=== PATIENT | male | born 1955 | race African-American/Black ===

== ENCOUNTER 2017-11-14 14:09 | Emergency (ER) | payer OTHER ==
[~2017-11-14] VITALS: Ht 177.8 cm; Wt 104.3 kg
--- NOTE | 2017-11-14 14:46 | Emergency Room Report ---
History of Present Illness General Chief Complaint: Pain Source: Patient Present Illness HPI Patient is a 62-year-old male who presented after increased left lower extremity pain. Patient reported having intermittent numbness. This reportedly had been worsened with ambulation but did not change with cycling. Reports have increased pain with going up and down stairs. He denies recent trauma.The patient was having some pain to his buttock as well as to his left thigh. The patient denies being a smoker.He denies increased leg pain or swelling.The patient reports having no recent trauma. He reports having numbness worse with exertion. During resting rested numbness subsequently improves. Allergies: Coded Allergies: No Known Allergies (Unverified , 11/14/17) Patient History Past Medical History: see triage record Reviewed Nursing Documentation: PMH: Agreed; PSxH: Agreed Nursing Documentation-PMH Past Medical History: No History, Except For Hx Hypertension: Yes Hx Diabetes: Yes - PRE-DIABETES Hx Gastrointestinal Problems: Yes - GERD History Of Psychiatric Problem: Yes - ANXIETY Review of Systems All Other Systems: negative except mentioned in HPI Physical Exam Vital Signs Date Time Temp Pulse Resp B/P (MAP) Pulse Ox O2 Delivery O2 Flow Rate FiO2 11/14/17 14:22 97.9 74 21 170/90 97 Room Air 97.9 Sp02 EP Interpretation: reviewed, normal General Appearance: normal inspection, well appearing, no apparent distress, alert, GCS 15, non-toxic Head: atraumatic ENT: normal ENT inspection, hearing grossly normal, normal voice Neck: normal inspection, full range of motion, supple, no bony tend Respiratory: normal inspection, lungs clear, normal breath sounds, no respiratory distress, no retraction, no wheezing Cardiovascular #1: regular rate, rhythm, no edema Gastrointestinal: normal inspection, normal bowel sounds, non tender, soft, no guarding, no hernia Genitourinary: no CVA tenderness Musculoskeletal: normal inspection, back normal, normal range of motion Neurologic: normal inspection, alert, oriented x3, responsive, translational specialist III-XII nml as tested, speech normal Psychiatric: normal inspection, judgement/insight normal, mood/affect normal Skin: normal inspection, normal color, no rash Medical Decision Making Diagnostic Impression: Primary Impression: Neural foraminal stenosis of lumbar spine Additional Impressions: Arthritis of knee Degenerative arthritis of lumbar spine ER Course The patient presented for left lower extremity pain. Differential diagnosis included was not limited to arterial insufficiency, deep venous thrombosis, spinal stenosis, lateral femoral cutaneous nerve among others.Duplex ultrasound of the left lower extremity showed triphasic flow without evidence of vascular occlusion. There is noted be some vascular calcifications. A CT of the lumbar spine read by radiology showed L4-L5 moderate to severe disc narrowing and osteophyte formation there is narrowing of the L4-L5 and L5-S1 neural foramina. Left unilateral left spondylosis. The patient is advised to follow up with primary care doctor in 1-2 days for physical therapy and orthopedic referral .The patient was advised to follow-up with orthopedic doctor for evaluation of knee arthritis. The patient is advised that he may need further imaging and diagnostics. Patient is advised to return if any worsening condition or if any changes in status that are concerning. This report is dictated with [employer] telescope repairer software which may occasionally lead to discrepancies related to use of this software. Labs Test 11/14/17 15:05 11/14/17 15:57 White Blood Count 7.2 K/UL (4.8-10.8) Red Blood Count 4.97 M/UL (4.70-6.10) Hemoglobin 15.0 G/DL (14.2-18.0) Hematocrit 44.6 % (42.0-52.0) Mean Corpuscular Volume 90 FL (80-99) Mean Corpuscular Hemoglobin 30.1 PG (27.0-31.0) Mean Corpuscular Hemoglobin Concent 33.6 G/DL (32.0-36.0) Red Cell Distribution Width 11.4 % (11.6-14.8) Platelet Count 204 K/UL (150-450) Mean Platelet Volume 6.5 FL (6.5-10.1) Neutrophils (%) (Auto) 66.1 % (45.0-75.0) Lymphocytes (%) (Auto) 21.7 % (20.0-45.0) Monocytes (%) (Auto) 5.5 % (1.0-10.0) Eosinophils (%) (Auto) 5.6 % (0.0-3.0) Basophils (%) (Auto) 1.2 % (0.0-2.0) Prothrombin Time 9.9 SEC (9.30-11.50) Prothromb Time International Ratio 0.9 (0.9-1.1) Activated Partial Thromboplast Time 24 SEC (23-33) Sodium Level 139 MMOL/L (136-145) Potassium Level 4.8 MMOL/L (3.5-5.1) Chloride Level 106 MMOL/L (98-107) Carbon Dioxide Level 28 MMOL/L (21-32) Anion Gap 5 mmol/L (5-15) Blood Urea Nitrogen 9 mg/dL (7-18) Creatinine 1.0 MG/DL (0.55-1.30) Estimat Glomerular Filtration Rate > 60 mL/min (>60) Glucose Level 116 MG/DL (74-106) Calcium Level 9.2 MG/DL (8.5-10.1) Total Bilirubin 0.3 MG/DL (0.2-1.0) Aspartate Amino Transf (AST/SGOT) 18 U/L (15-37) Alanine Aminotransferase (ALT/SGPT) 26 U/L (12-78) Alkaline Phosphatase 93 U/L (46-116) Total Creatine Kinase 134 U/L (26-308) Troponin I 0.000 ng/mL (0.000-0.056) Total Protein 7.7 G/DL (6.4-8.2) Albumin 3.9 G/DL (3.4-5.0) Globulin 3.8 g/dL Albumin/Globulin Ratio 1.0 (1.0-2.7) Urine Color Yellow Urine Appearance Clear Urine pH 7 (4.5-8.0) Urine Specific [place] 1.010 (1.005-1.035) Urine Protein Negative (NEGATIVE) Urine Glucose (UA) Negative (NEGATIVE) Urine Ketones Negative (NEGATIVE) Urine Occult Blood Negative (NEGATIVE) Urine Nitrite Negative (NEGATIVE) Urine Bilirubin Negative (NEGATIVE) Urine Urobilinogen Normal MG/DL (0.0-1.0) Urine Leukocyte Esterase 1+ (NEGATIVE) Urine RBC 0-2 /HPF (0 - 0) Urine WBC 2-4 /HPF (0 - 0) Urine Squamous Epithelial Cells None /LPF (NONE/OCC) Urine Amorphous Sediment Few /LPF (NONE) Urine Bacteria Few /HPF (NONE) Urine Yeast Few /HPF (NONE) Last Vital Signs Date Time Temp Pulse Resp B/P (MAP) Pulse Ox O2 Delivery O2 Flow Rate FiO2 11/14/17 14:22 97.9 74 21 170/90 97 Room Air 97.9 Status: improved Disposition: HOME, SELF-CARE Condition: Stable Scripts Ibuprofen* (MOTRIN*) 600 Mg Tablet 600 MG ORAL Q8H PRN for For Pain, #30 TAB 0 Refills Prov: Noe Allison MD 11/14/17 Lidocaine (Lidocaine) 1 Each Adh..patch 700 MG TP DAILY, #30 PATCH Prov: Noe Allison MD 11/14/17 Noe Allison MD November 14, 2017 14:46
[2017-11-14 14:59] VITALS: BP 137/84
[2017-11-14 15:26] LABS: BASOPHILS % (AUTO) 1.2 % (0.0-2.0); EOSINOPHILS % (AUTO) 5.6 % (0.0-3.0); HEMATOCRIT 44.6 % (42.0-52.0); LYMPHOCYTES % (AUTO) 21.7 % (20.0-45.0); MEAN CORPUSCULAR VOLUME 90 FL (80-99); MONOCYTES % (AUTO) 5.5 % (1.0-10.0); NEUTROPHILS % (AUTO) 66.1 % (45.0-75.0); PLATELET COUNT 204 K/UL (150-450); RED BLOOD COUNT 4.97 M/UL (4.70-6.10); RED CELL DISTRIBUTION WIDTH 11.4 % (11.6-14.8); WHITE BLOOD COUNT 7.2 K/UL (4.8-10.8)
[2017-11-14 15:29] LABS: INR 0.9 (0.9-1.1)
[2017-11-14 15:33] LABS: CREATINE KINASE 134 U/L (26-308)
--- NOTE | 2017-11-14 15:48 | Diagnostic Imaging Report ---
Indication: Back pain Technique: Continuous helical transaxial imaging of the lumbar spine was obtained from the lung bases to the pubic symphysis. No IV contrast was administered. Coronal 2-D reformats were also obtained. Study obtained in a Siemens sensation [address] Total Dose length Product (DLP): 624.[address] Dose Index Volume (CTDIvol): 19.72 mGy Comparison: None Findings: No acute fractures appreciated. Moderate degenerative disease demonstrated in the lower part of the lumbar spine. At L4-5 there is moderate to severe disc narrowing and endplate facet osteophyte formation. At L5, there is a left unilateral defect of the pars interarticularis. There is a no anterolisthesis. Narrowing of the L4-5 and L5-S1 neural foramina demonstrated. There is also moderate narrowing of intervertebral disc at L3-4. Aorta is moderately calcified. IMPRESSION: No acute injury appreciated. Moderate degenerative changes of the lower lumbar spine as described above. Left unilateral L5 spondylolysis. 11/13/2017The CT scanner at [facility] is accredited by the [employer] and the scans are performed using dose optimization techniques as appropriate to a performed exam including Automatic Exposure control.
[2017-11-14 15:58] LABS: ANION GAP 5 mmol/L (5-15); BLOOD UREA NITROGEN 9 mg/dL (7-18); CALCIUM 9.2 MG/DL (8.5-10.1); CARBON DIOXIDE 28 MMOL/L (21-32); CHLORIDE 106 MMOL/L (98-107); POTASSIUM 4.8 MMOL/L (3.5-5.1); SODIUM 139 MMOL/L (136-145)
[2017-11-14 16:03] LABS: ALANINE AMINOTRANSFERASE 26 U/L (12-78); ALBUMIN 3.9 G/DL (3.4-5.0); ALKALINE PHOSPHATASE 93 U/L (46-116); ASPARTATE AMINO TRANSFERASE 18 U/L (15-37); BILIRUBIN,TOTAL 0.3 MG/DL (0.2-1.0)
[2017-11-14 16:15] LABS: APPEARANCE,URINE CLEAR; BILIRUBIN, URINE NEGATIVE (NEGATIVE); GLUCOSE, URINE (UA) NEGATIVE (NEGATIVE); KETONES,URINE NEGATIVE (NEGATIVE); LEUKOCYTE ESTERASE ,URINE 1+ (NEGATIVE); NITRITE,URINE NEGATIVE (NEGATIVE); PH,URINE 7 (4.5-8.0); PROTEIN,URINE NEGATIVE (NEGATIVE); UROBILINOGEN,URINE NORMAL MG/DL (0.0-1.0)
[2017-11-14 16:22] LABS: COLOR,URINE YELLOW
[2017-11-14] MEDS ORDERED: Ketorolac 30mg Inj IV ONE (16:30)
[2017-11-14] MEDS ORDERED: IBUPROFEN600 MG ORAL (16:39)
[2017-11-14] MEDS ORDERED: LIDOCAINE700 M1 TP (16:39)
[2017-11-14 17:18] VITALS: BP 137/84
--- NOTE | 2017-11-15 09:31 | Diagnostic Imaging Report ---
APPROVED REPORT CPT Code: 14248 Symptoms Left Comments LT LEG PAIN. LEFT LEG: Common femoral artery waveform analysis is within normal limits at rest. Color flow duplex sonography reveals minimal calcification throughout the superficial femoral arterie. Color duplex sonography reveals patency of the superficial femoral, popliteal and tibial arteries. There is no evidence of stenosis or occlusion within these segments.
--- NOTE | 2017-11-15 10:30 | Diagnostic Imaging Report ---
Indication: Pain 3 views of the left knee were obtained. Findings: There is joint space narrowing with extensive marginal osteophyte formation and subchondral sclerosis. No fracture seen. IMPRESSION: Moderate to severe degenerative arthritis
== END 2017-11-14 17:19 | disposition home or self-care (01) ==
LOC: EMR 14:57
DX: M48.061 Spinal stenosis, lumbar region without neurogenic claudication (principal); M17.12 Unilateral primary osteoarthritis, left knee; M43.06 Spondylolysis, lumbar region
CPT/HCPCS: 36415; 72131; 73562; 80053; 81001; 82550; 84484; 85025; 85610; 85730; 87086; 93926; 96374; 99284; J1885

== ENCOUNTER 2019-04-16 13:34 | Emergency (ER) | payer MEDICARE, OTHER ==
[~2019-04-16] VITALS: Ht 177.8 cm; Wt 99.8 kg
[~2019-04-16 13:34] MED LIST: IBUPROFEN600 MG ORAL; LIDOCAINE700 M1 TP
[2019-04-16] MEDS ORDERED: METFORMIN HCL500 M1 ORAL (13:44)
[2019-04-16] MEDS ORDERED: METOPROLOL TART25 MG ORAL (13:44)
[2019-04-16 13:45] VITALS: BP 109/79
--- NOTE | 2019-04-16 13:47 | NUR ---
ED Nurse Note: pt walked in to ED due to redness and swelling on both legs for 1 weeks. per pt, possible spider bite. redness getting bigger. no discharge noted. AAO x4. respirations even and non-labored noted. will wait for the further order.
[2019-04-16] MEDS ORDERED: Cephalexin 500mg cap ORAL ONE (14:15)
[2019-04-16 15:03] LABS: APPEARANCE,URINE CLEAR; BILIRUBIN, URINE NEGATIVE (NEGATIVE); GLUCOSE, URINE (UA) NEGATIVE (NEGATIVE); KETONES,URINE 1+ (NEGATIVE); LEUKOCYTE ESTERASE ,URINE NEGATIVE (NEGATIVE); NITRITE,URINE NEGATIVE (NEGATIVE); PH,URINE 6 (4.5-8.0); PROTEIN,URINE NEGATIVE (NEGATIVE); UROBILINOGEN,URINE NORMAL MG/DL (0.0-1.0)
[2019-04-16 15:05] LABS: COLOR,URINE YELLOW
[2019-04-16 15:07] LABS: BASOPHILS % (AUTO) 1.4 % (0.0-2.0); EOSINOPHILS % (AUTO) 5.6 % (0.0-3.0); HEMATOCRIT 43.9 % (42.0-52.0); HEMOGLOBIN 15.4 G/DL (14.2-18.0); LYMPHOCYTES % (AUTO) 27.6 % (20.0-45.0); MEAN CORPUSCULAR VOLUME 86 FL (80-99); NEUTROPHILS % (AUTO) 60.4 % (45.0-75.0); PLATELET COUNT 232 K/UL (150-450); RED BLOOD COUNT 5.11 M/UL (4.70-6.10); RED CELL DISTRIBUTION WIDTH 10.3 % (11.6-14.8); WHITE BLOOD COUNT 6.7 K/UL (4.8-10.8)
[2019-04-16 15:21] LABS: ANION GAP 5 mmol/L (5-15); BLOOD UREA NITROGEN 11 mg/dL (7-18); CARBON DIOXIDE 31 MMOL/L (21-32); CHLORIDE 106 MMOL/L (98-107); POTASSIUM 4.3 MMOL/L (3.5-5.1); SODIUM 142 MMOL/L (136-145)
--- NOTE | 2019-04-16 15:21 | Emergency Room Report ---
History of Present Illness General Chief Complaint: Skin Rash/Abscess Source: Medical Record Present Illness HPI 63-year-old male with history of prediabetes and hypertension currently taking metformin here complaining of affected insect bite and right lower extremity for the past 4 days. Patient reports due to extreme pruritus has been scratching it nonstop and pus drainage is now noted in the right Achilles. Patient is worried about the lesion getting gangrene is however no signs of gangrene is noted. Patient has full range of motion of the foot, denies tingling and numbness. Denies fever and chills, chest pain, shortness of breath , palpitation, abdominal pain, nausea vomiting and other associated symptoms. Is up-to-date with tetanus shot. Allergies: Coded Allergies: No Known Allergies (Unverified , 11/14/17) Patient History Past Medical History: see triage record Past Surgical History: unable to obtain Pertinent Family History: none Immunizations: UTD Reviewed Nursing Documentation: PMH: Agreed; PSxH: Agreed Nursing Documentation-PMH Past Medical History: No History, Except For Hx Hypertension: Yes Hx Diabetes: Yes - PRE-DIABETES Hx Gastrointestinal Problems: Yes - GERD Review of Systems All Other Systems: negative except mentioned in HPI Physical Exam Vital Signs Date Time Temp Pulse Resp B/P (MAP) Pulse Ox O2 Delivery O2 Flow Rate FiO2 04/16/19 13:41 97.9 72 18 109/79 (89) 99 Room Air Sp02 EP Interpretation: reviewed, normal General Appearance: no apparent distress, alert, GCS 15, non-toxic Head: normocephalic, atraumatic Eyes: bilateral eye normal inspection, bilateral eye PERRL ENT: hearing grossly normal, normal pharynx, no angioedema, normal voice Neck: full range of motion, supple, supple/symm/no masses Respiratory: chest non-tender, lungs clear, normal breath sounds, no rhonchi, no wheezing, speaking full sentences Cardiovascular #1: regular rate, rhythm, no edema, no murmur Cardiovascular #2: 2+ dorsalis pedis (R), 2+ dorsalis pedis (L) Gastrointestinal: normal bowel sounds, non tender, soft, non-distended, no guarding, no rebound Genitourinary: normal inspection, no CVA tenderness Musculoskeletal: back normal, gait/station normal, normal range of motion, non- tender, no calf tenderness Neurologic: alert, oriented x3, responsive, motor strength/tone normal, sensory intact, speech normal Psychiatric: judgement/insight normal, memory normal, mood/affect normal, no suicidal/homicidal ideation Skin: other - Infected insect bite right Achilles with minimal pus drainage however no signs of osteomyelitis noted it does not appear to be gangreneous Lymphatic: no adenopathy Medical Decision Making PA Attestation All diagnoses and treatment plans were reviewed and discussed with my supervising physician Dr. Amaya Diagnostic Impression: Primary Impression: Infected insect bite ER Course 63-year-old male with history of prediabetes and hypertension currently taking metformin here complaining of affected insect bite and right lower extremity for the past 4 days. Patient reports due to extreme pruritus has been scratching it nonstop and pus drainage is now noted in the right Achilles. Patient is worried about the lesion getting gangrene is however no signs of gangrene is noted. Patient has full range of motion of the foot, denies tingling and numbness. Denies fever and chills, chest pain, shortness of breath , palpitation, abdominal pain, nausea vomiting and other associated symptoms. Is up-to-date with tetanus shot. Ddx considered but are not limited to : Infected insect bite, noninfected insect bite, gangrenous insect bite cellulitis, DVT, superficial infection, abscess Vital signs: are WNL, pt. is afebrile H&PE are most consistent with: Infected insect bite ORDERS: Bactrim DS, Keflex, , CBC, CMP, UA ED INTERVENTIONS: Bactrim DS, Keflex, hydrocortisone cream DISCHARGE: At this time pt. is stable for d/c to home. Will provide printed patient care instructions, and any necessary prescriptions. Care plan and follow up instructions have been discussed with the patient prior to discharge. Hydrocortisone cream to be applied to the noninfected side of the insect bite which is in the other leg. Follow-up with primary care or return to emergency room in 24 to 48 hours for wound check. If worsening symptoms return to the emergency room sooner. No x-rays needed as no signs of osteomyelitis noted. Last Vital Signs Date Time Temp Pulse Resp B/P (MAP) Pulse Ox O2 Delivery O2 Flow Rate FiO2 04/16/19 13:45 97.9 72 18 109/79 99 Room Air Disposition: HOME, SELF-CARE Condition: Stable Scripts Hydrocortisone Acetate/Aloe V (Hydrocortisone-Aloe 0.5% Cream) 28.4 Gm Cream..g. 1 GM TP BID, #28 GM Prov: Melodie Parisi 04/16/19 Trimethoprim/Sulfamethoxazole 160/800* (BACTRIM DS TABLET*) 1 Each Tablet 1 TAB ORAL TWICE A DAY for 7 Days, #14 TAB Prov: Melodie Parisi 04/16/19 Cephalexin* (KEFLEX*) 500 Mg Capsule 500 MG ORAL EVERY 6 HOURS for 7 Days, #28 CAP Prov: Melodie Parisi 04/16/19 Referrals: NON PHYSICIAN (PCP) Patient Instructions: Insect Bite, [id number] Additional Instructions: Take medication as directed, follow-up with your primary care provider, if worsening symptoms return to the emergency room. You need all the wound check in 24 to 48 hours Melodie Parisi Apr 16, 2019 15:21
[2019-04-16] MEDS ORDERED: HYDROCORTISON28.4 G4 TP (15:24)
[2019-04-16] MEDS ORDERED: BACTRIM DS TAB1 EAC1 ORAL (15:24)
[2019-04-16] MEDS ORDERED: CEPHALEXIN500 MG ORAL (15:24)
[2019-04-16 15:25] LABS: ALANINE AMINOTRANSFERASE 40 U/L (12-78); ALBUMIN 3.8 G/DL (3.4-5.0); ALBUMIN/GLOBULIN RATIO 1.1 (1.0-2.7); ALKALINE PHOSPHATASE 100 U/L (46-116); ASPARTATE AMINO TRANSFERASE 23 U/L (15-37); BILIRUBIN,TOTAL 0.4 MG/DL (0.2-1.0)
[2019-04-16 15:50] VITALS: BP 111/81
--- NOTE | 2019-04-16 15:52 | NUR ---
ER DISCHARGE NOTE: Patient is cleared to be discharged per ERMD, pt is aox4, on room air, with stable vital signs. pt was given dc and prescription instructions, pt was able to verbalize understanding, pt id band removed without complications. pt is able to ambulate with steady gait. pt took all belongings.
== END 2019-04-16 15:53 | disposition home or self-care (01) ==
LOC: EMR 14:36
DX: S90.861A Insect bite (nonvenomous), right foot, initial encounter (principal); L08.9 Local infection of the skin and subcutaneous tissue, unspecified; I10 Essential (primary) hypertension; R73.03 Prediabetes; K21.9 Gastro-esophageal reflux disease without esophagitis; Z79.84 Long term (current) use of oral hypoglycemic drugs; W57.XXXA Bitten or stung by nonvenomous insect and other nonvenomous arthropods, initial encounter; Y92.9 Unspecified place or not applicable
CPT/HCPCS: 36415; 80053; 81001; 85025; 99283

== ENCOUNTER 2019-08-21 13:27 | Emergency (ER) | payer MEDICARE, OTHER ==
[~2019-08-21] VITALS: Ht 177.8 cm; Wt 98.9 kg
[~2019-08-21 13:27] MED LIST changes: +BACTRIM DS TAB1 EAC1 ORAL; +CEPHALEXIN500 MG ORAL; +HYDROCORTISON28.4 G4 TP; +METFORMIN HCL500 M1 ORAL; +METOPROLOL TART25 MG ORAL
[2019-08-21 13:42] VITALS: BP 158/92
--- NOTE | 2019-08-21 13:55 | Emergency Room Report ---
History of Present Illness General Chief Complaint: Skin Rash/Abscess Source: Patient Present Illness HPI 64-year-old male with history of type 2 diabetes, hypertension both controlled with medication here complaining of an insect bite left lower extremity minimal pain at the site and pruritus. Reports that he was cleaning his closet and he noticed a spider and it bit him in the left left lower extremity. It happened yesterday. Patient is afebrile, denies any pain radiation, no signs of massive cellulitis, abscess formation noted. Really minimal warm to touch at the site of the bite. No drainage noted. Denies chest pain, shortness of breath, palpitation, headache and dizziness. Has not taken medication for symptom relief. Allergies: Coded Allergies: No Known Allergies (Unverified , 11/14/17) Patient History Past Medical History: see triage record Past Surgical History: none Pertinent Family History: none Immunizations: UTD Reviewed Nursing Documentation: PMH: Agreed; PSxH: Agreed Nursing Documentation-PMH Past Medical History: No History, Except For Hx Hypertension: Yes Hx Diabetes: Yes - PRE-DIABETES Hx Gastrointestinal Problems: Yes - GERD Review of Systems All Other Systems: negative except mentioned in HPI Physical Exam Vital Signs Date Time Temp Pulse Resp B/P (MAP) Pulse Ox O2 Delivery O2 Flow Rate FiO2 08/21/19 13:42 98.1 65 17 158/92 (114) 99 Room Air Sp02 EP Interpretation: reviewed, normal General Appearance: no apparent distress, alert, GCS 15, non-toxic Head: normocephalic, atraumatic Eyes: bilateral eye normal inspection, bilateral eye PERRL ENT: hearing grossly normal, normal pharynx, no angioedema, normal voice Neck: full range of motion, supple/symm/no masses Respiratory: chest non-tender, lungs clear, normal breath sounds, no rhonchi, no wheezing, speaking full sentences Cardiovascular #1: regular rate, rhythm, no edema, no murmur Cardiovascular #2: 2+ dorsalis pedis (R), 2+ dorsalis pedis (L) Gastrointestinal: normal bowel sounds, non tender, soft, non-distended, no guarding, no rebound Rectal: deferred Genitourinary: no CVA tenderness Musculoskeletal: back normal, digits/nails normal, no calf tenderness Neurologic: alert, motor strength/tone normal, oriented x3, sensory intact, responsive, speech normal Psychiatric: judgement/insight normal, memory normal, mood/affect normal, no suicidal/homicidal ideation Skin: other - Minimally infected insect bite left lower extremity Lymphatic: no adenopathy Medical Decision Making PA Attestation All my diagnosis and treatment plans were reviewed ad discussed with my supervising physician Dr. Calero Diagnostic Impression: Primary Impression: Cellulitis Additional Impression: Insect bite ER Course 64-year-old male with history of type 2 diabetes, hypertension both controlled with medication here complaining of an insect bite left lower extremity minimal pain at the site and pruritus. Reports that he was cleaning his closet and he noticed a spider and it bit him in the left left lower extremity. It happened yesterday. Patient is afebrile, denies any pain radiation, no signs of massive cellulitis, abscess formation noted. Really minimal warm to touch at the site of the bite. No drainage noted. Denies chest pain, shortness of breath, palpitation, headache and dizziness. Has not taken medication for symptom relief. Ddx considered but are not limited to : Cellulitis, DVT, superficial infection, abscess Vital signs: are WNL, pt. is afebrile H&PE are most consistent with: Cellulitis secondary to insect bite ORDERS: Keflex, Tylenol, hydrocortisone cream ED INTERVENTIONS: None required at this time. DISCHARGE: At this time pt. is stable for d/c to home. Will provide printed patient care instructions, and any necessary prescriptions. Care plan and follow up instructions have been discussed with the patient prior to discharge. Take medication as directed, follow-up with your primary care provider, increase oral hydration, if worsening symptoms return to the emergency room Last Vital Signs Date Time Temp Pulse Resp B/P (MAP) Pulse Ox O2 Delivery O2 Flow Rate FiO2 08/21/19 13:42 98.1 65 17 158/92 99 Room Air Disposition: HOME, SELF-CARE Condition: Stable Scripts Hydrocortisone/Aloe (Hydrocortisone/Aloe 1% Cream*) Y Cr 1 APPLIC TOPIC Q6H PRN for Itching, #30 GM Prov: Melodie Parisi 08/21/19 Cephalexin* (KEFLEX*) 500 Mg Capsule 500 MG ORAL EVERY 6 HOURS for 7 Days, #28 CAP Prov: Melodie Parisi 08/21/19 Patient Instructions: Cellulitis, [id number], Insect Bite, [id number] Additional Instructions: Take medication as directed, follow-up with your primary care provider, increase oral hydration, if worsening symptoms return to emergency room Melodie Parisi Aug 21, 2019 13:55
[2019-08-21] MEDS ORDERED: HYDROCORTISONE-30 GM TOPIC (13:57)
[2019-08-21] MEDS ORDERED: CEPHALEXIN500 MG ORAL (13:57)
[2019-08-21 14:06] VITALS: BP 158/92
== END 2019-08-21 14:07 | disposition home or self-care (01) ==
LOC: EMR 13:55
DX: L03.116 Cellulitis of left lower limb (principal); S80.862A Insect bite (nonvenomous), left lower leg, initial encounter; W57.XXXA Bitten or stung by nonvenomous insect and other nonvenomous arthropods, initial encounter; Y92.9 Unspecified place or not applicable; I10 Essential (primary) hypertension; R73.03 Prediabetes; K21.9 Gastro-esophageal reflux disease without esophagitis
CPT/HCPCS: 99282

== ENCOUNTER 2020-03-02 10:39 | Emergency (ER) | payer MEDICARE, OTHER ==
[~2020-03-02] VITALS: Ht 177.8 cm; Wt 101.2 kg
[~2020-03-02 10:39] MED LIST changes: +HYDROCORTISONE-30 GM TOPIC
[2020-03-02 10:47] VITALS: BP 139/84
--- NOTE | 2020-03-02 10:48 | NUR ---
ED Nurse Note: Patient walked in to ed for C/O insect bite to left lower leg x 1 week. reports itchy and painful. Patient AAOx4, VSS at this time.
[2020-03-02] MEDS ORDERED: HYDROCORTISONE-30 GM TOPIC (11:00)
[2020-03-02] MEDS ORDERED: CEPHALEXIN500 MG ORAL (11:00)
[2020-03-02 11:05] VITALS: BP 139/84
--- NOTE | 2020-03-02 11:06 | NUR ---
ER DISCHARGE NOTE: Patient is cleared to be discharged per ERMD, pt is aox4, on room air, with stable vital signs. pt was given dc and prescription instructions, pt was able to verbalize understanding, pt id band and iv site removed without complications. pt is able to ambulate with steady gait. pt took all belongings.
--- NOTE | 2020-03-02 11:37 | Emergency Room Report ---
History of Present Illness General Chief Complaint: Skin Rash/Abscess Source: Patient Present Illness HPI 64-year-old male presents to ED complaining of pain to his left leg. States he got an insect bite about 1 week ago. Swollen and hard. Tender. Pain is dull, 3 out of 10, nonradiating. States it is itchy. Denies fevers or chills. Denies any drainage. No other aggravating relieving factors. 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 Patient History Past Medical History: none, DM, HTN, GERD Past Surgical History: none Pertinent Family History: none Social History: Denies: smoking, alcohol use, drug use Immunizations: UTD Reviewed Nursing Documentation: PMH: Agreed; PSxH: Agreed Nursing Documentation-PMH Past Medical History: No History, Except For Hx Hypertension: Yes Hx Diabetes: Yes - PRE-DIABETES Hx Gastrointestinal Problems: Yes - GERD Review of Systems All Other Systems: negative except mentioned in HPI Physical Exam Vital Signs Date Time Temp Pulse Resp B/P (MAP) Pulse Ox O2 Delivery O2 Flow Rate FiO2 03/02/20 10:41 98.1 63 16 139/84 (102) 99 Room Air Sp02 EP Interpretation: reviewed, normal General Appearance: no apparent distress, alert, GCS 15, non-toxic Head: normocephalic Eyes: bilateral eye normal inspection, bilateral eye PERRL ENT: normal ENT inspection Neck: normal inspection Respiratory: normal inspection Cardiovascular #1: normal inspection Gastrointestinal: normal inspection Rectal: deferred Genitourinary: no CVA tenderness Musculoskeletal: normal inspection Neurologic: alert, motor strength/tone normal, oriented x3, sensory intact, responsive, speech normal Psychiatric: normal inspection Skin: other - erythema/induration L lateral ankle. no fluctuance or discharge Lymphatic: normal inspection Medical Decision Making Diagnostic Impression: Primary Impression: Insect bite Qualified Codes: S90.562A - Insect bite (nonvenomous), left ankle, initial encounter; W57.XXXA - Bitten or stung by nonvenomous insect and other nonvenomous arthropods, initial encounter ER Course Hospital Course 64-year-old male presents to ED with redness, swelling to L ankle Differential diagnoses include: Cellulitis, dermatitis, insect bite, abscess Clinical course Patient placed on stretcher. After initial history, physical exam reveals a male in no acute distress. On exam there is a site for mild erythema and induration just above the L ankle. There is no fluctuance. There is no tenderness. Full range of motion is noted in the L ankle and there is no concern for any signs of infection to the joint. I discussed findings with patient. Afebrile nontoxic-appearing. Will discharge with antibiotics. Recommend warm compresses. Safe for discharge with close outpatient follow-up. States he has a PMD Diagnosis - insect bite stable and discharged to home with prescription for Keflex, hydrocortisone/ aloe. warm compresses. Instructed to followup with PMD. Instructed return to ED if symptoms recur or worsen Last Vital Signs Date Time Temp Pulse Resp B/P (MAP) Pulse Ox O2 Delivery O2 Flow Rate FiO2 03/02/20 11:05 98.1 16 139/84 99 Room Air 03/02/20 10:41 63 Status: improved Disposition: HOME, SELF-CARE Condition: Stable Scripts Hydrocortisone/Aloe (Hydrocortisone/Aloe 1% Cream*) Y Cr 1 APPLIC TOPIC Q6H PRN for Itching, #30 GM Prov: Ernesto Hewitt MD 03/02/20 Cephalexin* (KEFLEX*) 500 Mg Capsule 500 MG ORAL EVERY 6 HOURS for 7 Days, #28 CAP Prov: Ernesto Hewitt MD 03/02/20 Referrals: NOT CHOSEN IPA/,REFERRING (PCP) Patient Instructions: Insect Bite, [id number] Ernesto Hewitt MD Mar 02, 2020 11:37
== END 2020-03-02 11:06 | disposition home or self-care (01) ==
LOC: EMR 11:01
DX: S90.562A Insect bite (nonvenomous), left ankle, initial encounter (principal); W57.XXXA Bitten or stung by nonvenomous insect and other nonvenomous arthropods, initial encounter; I10 Essential (primary) hypertension; K21.9 Gastro-esophageal reflux disease without esophagitis; R73.03 Prediabetes
CPT/HCPCS: 99282